=== PATIENT | female | born 1950 | race American Indian/Alaskan Native ===

== ENCOUNTER 2016-05-15 09:21 | Outpatient (CLI) | payer BC ==
[2016-05-15 09:53] LABS: Hematocrit 37.7 % (30.3-42.9); Hemoglobin 12.6 gm/dl (10.1-14.3); Mean Corpuscular HGB Conc 34 % (30-34); Mean Corpuscular Hemoglobin 32 pg (28-32); Mean Corpuscular Volume 96 fl (79-97); Platelet Count 199 K/mm3 (140-440); Red Blood Count 3.94 M/mm3 (3.65-5.03); Red Cell Distribution Width 12.6 % (13.2-15.2); White Blood Count 6.3 K/mm3 (4.5-11.0)
[2016-05-15 10:34] LABS: Albumin/Globulin Ratio 1.1 %; Bilirubin,Total 0.4 mg/dL (0.1-1.2); Calcium 9.4 mg/dL (8.4-10.2); Chloride 107.5 mmol/L (98-107); Potassium 4.3 mmol/L (3.6-5.0); Total Protein 7.7 g/dL (6.3-8.2)
[2016-05-15 10:38] LABS: Erythrocyte Sedimentation Rate 60 mm/Hr (0-20)
== END 2016-05-15 09:22 | disposition home or self-care (01) ==
LOC: LAB 09:21
PROVIDERS: ATTEND Specialist
DX: H81.11 Benign paroxysmal vertigo, right ear (principal)
CPT/HCPCS: 36415; 80053; 85027; 85652

== ENCOUNTER 2021-10-23 21:29 | Emergency (ER) | payer BC, MEDICARE ==
--- NOTE | 2021-10-23 22:18 | XRay Report ---
CHEST 2 VIEWS INDICATION / CLINICAL INFORMATION: CHEST PAIN. COMPARISON: None available. FINDINGS: SUPPORT DEVICES: None. HEART / MEDIASTINUM: Tortuous thoracic aorta. LUNGS / PLEURA: Lungs are hyperexpanded but clear. No pneumothorax. ADDITIONAL FINDINGS: No significant additional findings. IMPRESSION: 1. No acute findings. Signer Name: Efren Tanner MD Signed: 10/23/2021 10:14 PM Workstation Name: [email or web address]
[2021-10-23 23:18] LABS: Basophils # (Auto) 0.1 K/mm3 (0.0-0.1); Basophils % (Auto) 1.1 % (0.0-1.8); Eosinophils # (Auto) 0.4 K/mm3 (0.0-0.4); Eosinophils % (Auto) 3.9 % (0.0-4.3); Hematocrit 28.1 % (30.3-42.9); Hemoglobin 9.2 gm/dl (10.1-14.3); Lymphocytes # (Auto) 1.6 K/mm3 (1.2-5.4); Lymphocytes % (Auto) 16.6 % (13.4-35.0); Mean Corpuscular HGB Conc 33 % (30-34); Mean Corpuscular Volume 93 fl (79-97); Monocytes # (Auto) 0.8 K/mm3 (0.0-0.8); Monocytes % (Auto) 8.3 % (0.0-7.3); Platelet Count 301 K/mm3 (140-440); Red Blood Count 3.03 M/mm3 (3.65-5.03); Red Cell Distribution Width 15.5 % (13.2-15.2)
[2021-10-23 23:29] LABS: Albumin 3.7 g/dL (3.9-5); Calcium 8.7 mg/dL (8.4-10.2)
[2021-10-24 04:24] VITALS: BP 158/71
--- NOTE | 2021-10-24 08:41 | Electrocardiograph Report ---
[facility] Test Date: 2021-10-23 Test Time: 21:35:11 Pat Name: YOUSUF BLACKBURN Department: Room: Gender: F Fry Cook: CHERRY : 1950 Requested By: ED DOC Order Number: [id number] Reading MD: Benjamin Harris Measurements Intervals [place] Rate: 66 P: 54 OR: 192 QRS: -26 QRSD: 104 T: 94 QT: 437 QTc: 459 Interpretive Statements Sinus rhythm apc nonspecific st-t No previous ECG available for comparison Electronically Signed On 10-24-2021 8:40:34 EDT by Benjamin Harris
--- NOTE | 2021-10-24 08:56 | Emergency Department Report ---
ED General Adult HPI - General Chief complaint: Chest Pain Stated complaint: SOB PUI?: No Time Seen by Provider: 10/24/21 08:55 Source: patient, family Mode of arrival: Ambulatory Limitations: No Limitations - History of Present Illness Initial comments: PT C/O L SIDED CHEST PAIN AND SOB X 30 MIN FIFTH HAND, STATES NO CARDIAC HISTORY - Related Data Home Medications Medication Instructions Recorded Confirmed Last Taken Azilsartan Med/Chlorthalidone 1 each PO DAILY 12/28/12 12/28/12 12/28/12 08:30 [Edarbyclor 40-12.5 mg] dilTIAZem HCl [Diltiazem 24Hr ER] 240 mg PO QDAY 12/28/12 12/28/12 12/28/12 08:30 Previous Rx's Medication Instructions Recorded Last Taken Type HYDROcodone/APAP 5-325 [[place] 1 each PO Q6HR PRN #20 tablet 12/28/12 Unknown Rx 5/325 mg] Allergies Allergy/AdvReac Type Severity Reaction Status Date / Time ibuprofen [From Motrin] AdvReac Rash Verified 12/28/12 16:48 ED Review of Systems ROS: Stated complaint: SOB Other details as noted in HPI Comment: All other systems reviewed and negative ED Past Medical Hx - Past Medical History Previous Medical History?: Yes Hx Hypertension: Yes Hx Renal Disease: Yes - Surgical History Past Surgical History?: Yes Additional Surgical History: skin graft under left arm - Family History Family history: no significant - Social History Smoking Status: Current Every Day Smoker Substance Use Type: Alcohol - Medications Home Medications: Home Medications Medication Instructions Recorded Confirmed Last Taken Type Azilsartan Med/Chlorthalidone 1 each PO DAILY 12/28/12 12/28/12 12/28/12 08:30 History [Edarbyclor 40-12.5 mg] HYDROcodone/APAP 5-325 [[place] 1 each PO Q6HR PRN #20 tablet 12/28/12 Unknown Rx 5/325 mg] dilTIAZem HCl [Diltiazem 24Hr ER] 240 mg PO QDAY 12/28/12 12/28/12 12/28/12 08:30 History ED Physical Exam - General Limitations: No Limitations General appearance: alert, in no apparent distress - Head Head exam: Present: atraumatic, normocephalic - Eye Eye exam: Present: normal appearance - ENT ENT exam: Present: mucous membranes moist - Neck Neck exam: Present: normal inspection - Respiratory Respiratory exam: Present: normal lung sounds bilaterally. Absent: respiratory distress - Cardiovascular Cardiovascular Exam: Present: regular rate, normal rhythm. Absent: systolic murmur, diastolic murmur, rubs, gallop - GI/Abdominal GI/Abdominal exam: Present: soft, normal bowel sounds - Extremities Exam Extremities exam: Present: normal inspection - Back Exam Back exam: Present: normal inspection - Neurological Exam Neurological exam: Present: alert, oriented X3 - Psychiatric Psychiatric exam: Present: normal affect, normal mood - Skin Skin exam: Present: warm, dry, intact, normal color. Absent: rash ED Course Vital Signs 10/24/21 04:23 Temperature 98.6 F Pulse Rate 58 L Respiratory 18 Rate Blood Pressure 158/71 [Left] O2 Sat by Pulse 99 Oximetry ED Medical Decision Making - Lab Data Result diagrams: 10/23/21 22:49 10/24/21 13:24 - Medical Decision Making Vital Signs 10/24/21 04:23 Temperature 98.6 F Pulse Rate 58 L Respiratory 18 Rate Blood Pressure 158/71 [Left] O2 Sat by Pulse 99 Oximetry Lab Results 10/23/21 10/23/21 10/24/21 Range/Units 22:49 22:49 02:00 WBC 9.4 (4.5-11.0) K/mm3 RBC 3.03 L (3.65-5.03) M/mm3 Hgb 9.2 L (10.1-14.3) gm/dl Hct 28.1 L (30.3-42.9) % MCV 93 (79-97) fl MCH 30 (28-32) pg MCHC 33 (30-34) % RDW 15.5 H (13.2-15.2) % Plt Count 301 (140-440) K/mm3 Lymph % (Auto) 16.6 (13.4-35.0) % [place] % (Auto) 8.3 H (0.0-7.3) % Eos % (Auto) 3.9 (0.0-4.3) % Baso % (Auto) 1.1 (0.0-1.8) % Lymph # (Auto) 1.6 (1.2-5.4) K/mm3 [place] # (Auto) 0.8 (0.0-0.8) K/mm3 Eos # (Auto) 0.4 (0.0-0.4) K/mm3 Baso # (Auto) 0.1 (0.0-0.1) K/mm3 Seg Neutrophils % 70.1 H (40.0-70.0) % Seg Neutrophils # 6.6 (1.8-7.7) K/mm3 Sodium 140 (137-145) mmol/L Potassium 5.7 H (3.6-5.0) mmol/L Chloride 110.5 H (98-107) mmol/L Carbon Dioxide 16 L (22-30) mmol/L Anion Gap 19 mmol/L BUN 35 H (7-17) mg/dL Creatinine 3.6 H (0.6-1.2) mg/dL Estimated GFR 15 ml/min BUN/Creatinine Ratio 10 % Glucose 92 (65-100) mg/dL Calcium 8.7 (8.4-10.2) mg/dL Phosphorus (2.5-4.5) mg/dL Magnesium (1.7-2.3) mg/dL Total Bilirubin 0.20 (0.1-1.2) mg/dL AST 10 (5-40) units/L ALT 8 (7-56) units/L Alkaline Phosphatase 67 (35-129) units/L Troponin T 0.027 0.024 (0.00-0.029) ng/mL Total Protein 7.2 (6.3-8.2) g/dL Albumin 3.7 L (3.9-5) g/dL Albumin/Globulin Ratio 1.1 % 10/24/21 10/24/21 Range/Units 05:37 13:24 WBC (4.5-11.0) K/mm3 RBC (3.65-5.03) M/mm3 Hgb (10.1-14.3) gm/dl Hct (30.3-42.9) % MCV (79-97) fl MCH (28-32) pg MCHC (30-34) % RDW (13.2-15.2) % Plt Count (140-440) K/mm3 Lymph % (Auto) (13.4-35.0) % [place] % (Auto) (0.0-7.3) % Eos % (Auto) (0.0-4.3) % Baso % (Auto) (0.0-1.8) % Lymph # (Auto) (1.2-5.4) K/mm3 [place] # (Auto) (0.0-0.8) K/mm3 Eos # (Auto) (0.0-0.4) K/mm3 Baso # (Auto) (0.0-0.1) K/mm3 Seg Neutrophils % (40.0-70.0) % Seg Neutrophils # (1.8-7.7) K/mm3 Sodium 141 (137-145) mmol/L Potassium 6.0 H (3.6-5.0) mmol/L Chloride 108.7 H (98-107) mmol/L Carbon Dioxide 19 L (22-30) mmol/L Anion Gap 19 mmol/L BUN 35 H (7-17) mg/dL Creatinine 3.5 H (0.6-1.2) mg/dL Estimated GFR 16 ml/min BUN/Creatinine Ratio 10 % Glucose 145 H (65-100) mg/dL Calcium 9.6 (8.4-10.2) mg/dL Phosphorus 4.40 (2.5-4.5) mg/dL Magnesium 1.90 (1.7-2.3) mg/dL Total Bilirubin (0.1-1.2) mg/dL AST (5-40) units/L ALT (7-56) units/L Alkaline Phosphatase (35-129) units/L Troponin T 0.018 (0.00-0.029) ng/mL Total Protein (6.3-8.2) g/dL Albumin (3.9-5) g/dL Albumin/Globulin Ratio % k noted repeated k noted on 2nd draw- 6 [id number] pt left ER Georgina DE GUZMAN aware- she is going to call pt back Critical care attestation.: If time is entered above; I have spent that time in minutes in the direct care of this critically ill patient, excluding procedure time. ED Disposition Clinical Impression: Hyperkalemia Disposition: 07 LEFT AWOL/ELOPED Is pt being admited?: No Does the pt Need Aspirin: No Condition: Stable Time of Disposition: 17:49
[2021-10-24 14:57] LABS: Calcium 9.6 mg/dL (8.4-10.2)
== END 2021-10-24 18:21 | disposition left against medical advice (07) ==
LOC: ED 21:29
DX: E87.6 Hypokalemia (principal); I10 Essential (primary) hypertension; Z88.6 Allergy status to analgesic agent; F17.200 Nicotine dependence, unspecified, uncomplicated
CPT/HCPCS: 36415; 71046; 80048; 80053; 83735; 84100; 84484; 85025; 93005; 99283